=== PATIENT | female | born 1995 | race Caucasian/White ===

== ENCOUNTER 2016-06-28 23:39 | Emergency (ER) | payer MEDICAID ==
--- NOTE | 2016-06-29 06:04 | ER ---
ADMIT: 06/28/2016 RM/LOC: ER [facility] MR#: [id number] [id number] MATHEUS LIAO , Emergency Room Report SEX: F AGE: 20 : 1995 DATE: 06/29/2016 The patient is a 20-year-old, Persian-speaking female with right earache tonight, prior history of otitis is little. Exam remarkable for nontoxic, afebrile, acutely ill female with inflamed right TM. The patient was given Rocephin 1 g IM, Toradol, Dilaudid, Reglan IM, home with Augmentin 875 b.i.d. #20, hydrocodone 5/325 #20. Follow up by Dr. Snell as needed. Avery Yost MD/ issac JOB #: [id number] CC: vAery Yost MD, Attending Physician Christ Snell MD
== END 2016-06-29 01:55 | disposition home or self-care (01) ==
LOC: ER 23:39
DX: H66.91 Otitis media, unspecified, right ear (principal)